=== PATIENT | male | born 1965 | race African-American/Black ===

== ENCOUNTER 2016-11-06 01:38 | Emergency (ER) | payer OTHER ==
[~2016-11-06] VITALS: Ht 188 cm; Wt 90.7 kg
[2016-11-06 01:46] VITALS: BP 0/0
[2016-11-06] MEDS ORDERED: CALCIUM CHLOR(10%) 100MG/ML 10ML SYRINGE IV ONE ×2 (01:48→09:44)
[2016-11-06] MEDS ORDERED: EPINEPHrine HCL 1 MG/10 ML SYRG ONE (01:49)
[2016-11-06] MEDS ORDERED: AMIODARONE HCL (50 MG/ ML) 3 ML VIAL IV ONE (09:44)
[2016-11-06] MEDS ORDERED: EPINEPHrine HCL 1 MG/10 ML SYRG IV ONE (09:44)
[2016-11-06] MEDS ORDERED: DEXTROSE (50%) 50ML SYRG IV ONE (09:44)
[2016-11-06] MEDS ORDERED: SODIUM BICARBONATE 8.4 % INJ 50ML VIAL IV ONE (09:44)
== END 2016-11-06 06:08 | disposition expired ==
LOC: ER 01:41
DX: I46.9 Cardiac arrest, cause unspecified (principal); E11.22 Type 2 diabetes mellitus with diabetic chronic kidney disease; N18.6 End stage renal disease
CPT/HCPCS: 31500; 92950; 99285; J0171; J0282; J7042